=== PATIENT | female | born 1970 | race Caucasian/White ===

== ENCOUNTER 2019-06-15 06:35 | Inpatient (IN) | payer MEDICAID ==
[2019-06-15] MEDS ORDERED: Acetaminophen 500 MG Tab PO ONE (07:15)
[2019-06-15] MEDS ORDERED: Celecoxib 200 MG Cap PO ONE (07:15)
[2019-06-15] MEDS ORDERED: Scopolamine 1.5 MG Transdermal Patch TRDERM ONE (07:15)
[2019-06-15] MEDS ORDERED: Gabapentin 300 MG Cap PO ONE (07:15)
[2019-06-15] MEDS ORDERED: Rocuronium 50 MG/5 ML Vial ONE ×2 (07:20→09:12)
[2019-06-15] MEDS ORDERED: Neostigmine Methylsulfate 1 MG/ML 5 ML Syringe ONE (07:20)
[2019-06-15] MEDS ORDERED: Dexamethasone 4 MG/ML SDV ONE (07:20)
[2019-06-15] MEDS ORDERED: fentaNYL 250 MCG/5 ML SDV ONE ×2 (07:20→09:11)
[2019-06-15] MEDS ORDERED: Glycopyrrolate 0.2 MG/ML 5 ML MDV ONE (07:20)
[2019-06-15] MEDS ORDERED: Ondansetron 4 MG/2 ML SDV ONE (07:20)
[2019-06-15] MEDS ORDERED: Succinylcholine 200 MG/10 ML MDV ONE (07:20)
[2019-06-15] MEDS ORDERED: Propofol 200 MG/20 ML SDV ONE (07:20)
[2019-06-15] MEDS ORDERED: Lactated Ringers 1,000 ML ONE (07:23)
[2019-06-15] MEDS ORDERED: Dextrose 5%-Lactated Ringers 1,000 ML IV SCH (07:30)
[2019-06-15] MEDS ORDERED: cefOXitin 2 GM in Sodium Chloride 0.9% 50 ML IV ONE (08:00)
[2019-06-15] MEDS ORDERED: cefOXitin 2 GM Vial ONE (08:02)
[2019-06-15] MEDS ORDERED: Bupivacaine 0.5% 50 ML MDV ONE (08:03)
[2019-06-15] MEDS ORDERED: Lidocaine 1% with EPINEPHrine 1:100,000 50 ML MDV ONE (08:03)
[2019-06-15] MEDS ORDERED: Lidocaine 2% 100 MG/5 ML Syringe IVPUSH SCH (08:30)
[2019-06-15] MEDS ORDERED: Ketamine 500 MG/5 ML MDV IV SCH (08:30)
[2019-06-15] MEDS ORDERED: Ketamine 50 MG in Sodium Chloride 0.9% 49.5 ML IV SCH (08:30)
[2019-06-15] MEDS ORDERED: Labetalol 20 MG/4 ML Syringe ONE (09:42)
[2019-06-15] MEDS ORDERED: hydrOXYzine HCL 100 MG/2 ML SDV IM PRN (12:42)
[2019-06-15] MEDS ORDERED: Ondansetron 4 MG/2 ML SDV IVPUSH PRN (12:42)
[2019-06-15] MEDS ORDERED: diphenhydrAMINE 50 MG/ML SDV IVPUSH PRN (12:42)
[2019-06-15] MEDS ORDERED: HYDROmorphone 0.5 MG/0.5 ML Syringe IVPUSH PRN (12:42)
[2019-06-15] MEDS ORDERED: Metoclopramide 10 MG/2 ML SDV IVPUSH PRN (12:42)
[2019-06-15] MEDS ORDERED: HYDROmorphone 1 MG/ML Syringe IV PRN (12:42)
[2019-06-15] MEDS ORDERED: Labetalol 20 MG/4 ML Syringe IVPUSH PRN (12:42)
[2019-06-15] MEDS: Lidocaine 0.4%/D5W 2 GM/500 ML BAG IV SCH (12:57)
[2019-06-15] MEDS: Acetaminophen 325 MG Tab PO SCH ×2 (13:01→17:54)
[2019-06-15] MEDS ORDERED: Pantoprazole 40 MG Vial IVPUSH SCH (14:00)
[2019-06-15] MEDS: Citalopram 20 MG Tab PO SCH ×3 (14:34→21:27)
[2019-06-15] MEDS: Cetirizine 10 MG Tab PO SCH ×3 (14:37→21:30)
[2019-06-15] MEDS: cefOXitin 2 GM in Sodium Chloride 0.9% 50 ML IV SCH ×2 (14:40→19:34)
[2019-06-15] MEDS: Gabapentin 250 MG/5 ML Solution ML 470 ML Bottle PO SCH ×3 (14:50→21:26)
[2019-06-15] MEDS: Heparin Sodium 5,000 Units/ML Vial SUBCUT SCH (15:21)
[2019-06-15] MEDS ORDERED: MVI, Adult with Vitamin K 10 ML, Thiamine 200 MG, Chromium/Copper/Mang/Selen/Zn 1 ML in... IV SCH ×4 (16:00)
[2019-06-15] MEDS: ARIPiprazole 10 MG Tab PO SCH (21:26)
[2019-06-15] MEDS: Dextrose 5%-Lactated Ringers 1,000 ML IV SCH (21:31)
[2019-06-16] MEDS: Acetaminophen 325 MG Tab PO SCH ×4 (00:48→18:37)
[2019-06-16] MEDS: cefOXitin 2 GM in Sodium Chloride 0.9% 50 ML IV SCH (01:17)
[2019-06-16] MEDS: Heparin Sodium 5,000 Units/ML Vial SUBCUT SCH ×2 (03:24→15:41)
[2019-06-16] MEDS ORDERED: Iopamidol 612 MG/ML 50 ML SDV PO STA (03:28)
[2019-06-16] MEDS: Dextrose 5%-Lactated Ringers 1,000 ML IV SCH ×2 (03:29→10:07)
--- NOTE | 2019-06-16 04:46 | CRLCR ---
Indication: Status post gastric sleeve surgery. Technique: Abdomen 2 view Comparison: None Findings/Impression: Two submitted images. On the 1st submitted image contrast is present in the distal esophagus extending to the stomach and proximal duodenum. Mesh as well as a left upper quadrant drain is noted. On the 2nd image there is transit of the contrast into the duodenum without gross extravasation. Dictated by Fareed Minor MD @ Jun 16 2019 4:33AM Signed by Dr. Fareed Minor @ Jun 16 2019 4:43AM
[2019-06-16] MEDS ORDERED: Ondansetron 4 MG Tab.DIS PO PRN (07:07)
--- NOTE | 2019-06-16 08:19 | PN ---
DATE OF SERVICE: 06/16/2019 SUBJECTIVE: Migdalia is postoperative day #1. Her pain has been controlled. She has been up ambulating. Vital signs have been stable. Oral intake 780, urine output 4900. MEG drain put out 95 mL of a light pink drainage. REVIEW OF SYSTEMS: Remainder of review of systems negative for any pertinent positives and negatives. OBJECTIVE: GENERAL: Migdalia Mei is a pleasant 48-year-old female. She is alert, orientated, color pale. VITAL SIGNS: TPR 98.3, 64, 22, blood pressure is 122/66. HEENT: Negative. NECK: Supple. HEART: Regular rate and rhythm. LUNGS: Clear. ABDOMEN: Dressing dry and intact. Abdominal binder is on. EXTREMITIES: Without peripheral edema. ASSESSMENT: Laparoscopic sleeve gastrectomy, liver biopsy, repair of diaphragmatic hernia with mesh and excision of lipoma for morbid obesity, hepatomegaly, large paraesophageal diaphragmatic hernia, and mediastinal lipoma. Date of surgery: 06/15/2019. Surgeon: Low Carbajal MD. PLAN: 1. Step 2 gastric bypass diet without cereal because upper GI was normal. 2. Dressing off, may shower. 3. Decrease IV to 100 mL per hour. 4. Zofran ODT 4 mg every 4 hours p.r.n. nausea. 5. Communication order; 3 med cups per hour or 1 every 20 minutes. 6. Discontinue pulse oximetry when lidocaine has been completely infused. 7. Good pulmonary toilet. 8. We will evaluate p.r.n. or in a.m. Rosalind Malone PA-C /[id number]
[2019-06-16] MEDS: Lidocaine 0.4%/D5W 2 GM/500 ML BAG IV SCH (09:58)
[2019-06-16] MEDS: SCOPOLAMINE PATCH CHECK TOP SCH (10:04)
[2019-06-16] MEDS: Gabapentin 250 MG/5 ML Solution ML 470 ML Bottle PO SCH ×3 (10:04→21:31)
[2019-06-16] MEDS ORDERED: Benzocaine/Cetylpyridinium/Menthol Lozenge MUCMEM PRN (10:25)
[2019-06-16] MEDS ORDERED: Pantoprazole 40 MG Delayed-Release Granules 1 Packet PO SCH (16:00)
[2019-06-16] MEDS ORDERED: MVI, Adult with Vitamin K 10 ML, Thiamine 200 MG, Chromium/Copper/Mang/Selen/Zn 1 ML in... IV SCH ×4 (16:00)
[2019-06-16] MEDS: ARIPiprazole 10 MG Tab PO SCH (21:32)
[2019-06-16] MEDS: Citalopram 20 MG Tab PO SCH (21:32)
[2019-06-16] MEDS: Cetirizine 10 MG Tab PO SCH (21:32)
[2019-06-17] MEDS: Acetaminophen 325 MG Tab PO SCH ×2 (00:19→05:31)
[2019-06-17] MEDS: Dextrose 5%-Lactated Ringers 1,000 ML IV SCH (01:56)
[2019-06-17] MEDS: Heparin Sodium 5,000 Units/ML Vial SUBCUT SCH (05:31)
[2019-06-17] MEDS: SCOPOLAMINE PATCH CHECK TOP SCH (08:20)
[2019-06-17] MEDS ORDERED: Cyanocobalamin (Vitamin B12) 1,000 MCG/ML SDV IM ONE (09:00)
[2019-06-17] MEDS: Gabapentin 250 MG/5 ML Solution ML 470 ML Bottle PO SCH (10:26)
--- NOTE | 2019-06-19 09:51 | DISCH ---
FINAL DIAGNOSES: 1. Morbid obesity. 2. Marked hepatomegaly. 3. Large paraesophageal diaphragmatic hernia. 4. Mediastinal lipoma. SECONDARY DIAGNOSES: 1. Bipolar affective disorder. 2. Post-traumatic stress disorder. 3. Obstructive sleep apnea, on CPAP. OPERATIVE PROCEDURES: Diagnostic laparoscopy with: 1. Laparoscopic sleeve gastrectomy. 2. Yassine-Cut needle liver biopsy. 3. Repair of paraesophageal diaphragmatic hernia with mesh. 4. Excision of mediastinal lipoma. This was done on 06/15/2019. SUMMARY: This is a 48-year-old female presenting with longstanding morbid obesity and increasingly significant comorbidities. After preoperative evaluation and discussion, she wished to proceed with a sleeve gastrectomy. This was done on the date of the procedure. The patient had a quite large paraesophageal hernia which was repaired and reinforced with an absorbable mesh to create a denser scar and less likelihood of recurrence at the crural repair at the diaphragmatic hernia. Postoperatively, the patient has done well. She is currently on a step 2 diet, which she will stay on for 1 month postoperatively. She will continue her usual home medications, will be taking Zantac plus Tylenol 650 mg p.o. q.6 hours p.r.n. and gabapentin 300 mg t.i.d. x1 week. She will be instructed to hold her vitamins, minerals, and other supplements such as iron and ascorbic acid until after her first appointment that will be with Rosalind Malone at [facility] on 06/25/2019.
--- NOTE | 2019-06-22 13:04 | OR ---
DATE OF PROCEDURE: 06/15/2019 SURGEON: Low Carbajal MD PREOPERATIVE DIAGNOSIS: Morbid obesity. POSTOPERATIVE DIAGNOSES: 1. Morbid obesity. 2. Marked hepatomegaly. 3. Large paraesophageal diaphragmatic hernia. 4. Mediastinal lipoma. OPERATIVE PROCEDURES: Diagnostic laparoscopy with: 1. Laparoscopic sleeve gastrectomy (63216). 2. Yassine-Cut needle liver biopsy (02417). 3. Repair of paraesophageal diaphragmatic hernia with mesh (14215). 4. Excision of mediastinal lipoma (49820). ANESTHESIA: General. ELEVATOR TECHNICIAN: Rosalind Malone PA-C INDICATIONS FOR PROCEDURE: A 48-year-old presenting with longstanding morbid obesity and increasingly significant comorbidities. After preoperative evaluation and discussion, she wished to proceed with a sleeve gastrectomy. Potential risks of the procedure including bleeding, infection, injury to underlying viscera, problems with leaks from the staple line, problems with worsening reflux, and poor gastric emptying were all reviewed, along with the remote possibility of cardiopulmonary, septic, or hemorrhagic complications leading to , and the patient wishes to proceed. DETAILS OF PROCEDURE: The patient was taken to the operating room and placed in the supine position. After general endotracheal anesthesia was induced, she was converted to a lithotomy position and the abdomen was prepped and draped. At 15 cm inferior and 5 cm left of the xiphoid process, a transverse incision was made and peritoneal cavity entered under direct vision with an Optiview trocar, inflated to 15 mmHg pressure of CO2. Laparoscope was then reinserted. No underlying trocar insertion site injuries were seen. Following this, 5 additional trocars were placed across the upper and mid abdomen. General exploration was undertaken. The patient was noted to have a marked hepatomegaly with liver volume being roughly 2 to 3 times normal and the liver grossly fatty infiltrated. Yassine-Cut needle biopsy was obtained from left lobe of the liver. Following this, bilateral transversus abdominis plane blocks were then placed. The liver was then retracted anteriorly. The patient was noted to have a quite large paraesophageal diaphragmatic hernia. This was roughly the size of a chicken egg in terms of its dimension and would likely have roughly a third of stomach coming up in the chest with inspirations in the awake setting. The peritoneum over the edges of the diaphragmatic hernia were resected and the diaphragm was then incised, and the peritoneum reflected downward. During the course of this dissection, further large mediastinal lipoma was identified and removed in 2 separate parts by using the Harmonic scalpel. A circumferential dissection of the esophagus at the EG junction was then accomplished, and then the esophagus was then dissected downward such that roughly a 4-5 cm intraabdominal esophageal length was accomplished. A posterior crural repair with 0 Ethibond suture reinforced with PTFE pledgets was then placed due to the large size of the hernia. The crural repair was augmented with a Phasix ST mesh. This was cut in a horseshoe-type configuration and then placed behind the esophagus over the crural repair and left that alongside the esophagus attached to the crura on each side with titanium tacking screws. At this point, the attention was then taken to freeing up the greater curvature. The mid greater curvature was divided away from the omentum with Harmonic scalpel and this dissection then continued upward through the highest and posterior short gastric vessels. The attachments to the upper fundus of the left hollie were then divided resulting in a complete freeing up of the gastric fundus from that area. The dissection removed the omentum from the greater curvature of the stomach then continued distally to a point 2 cm proximal to the pyloric sphincter. The point of initial resection line was then mapped out with electrocautery in the anterior aspect of the stomach beginning 2 cm proximal to the pylorus. This continued below the incisura angularis with care taken to avoid overtightening of that area. Once the peralta were in place, the first 3 firings of the staple line were then reinforced with the LEANDRA black loads. Following this, a 32-Slovenian tube was then passed orally across the esophagus and along the lesser curvature of the stomach and into the antrum. This was then pulled up against the lesser curvature of the stomach and suction applied. The remainder of the sleeve gastrectomy staple line was then accomplished with reinforced black and purple loads and the specimen then delivered off to the side. The staple line was inspected and found to be intact in all areas. The area around the esophagogastric junction and just below that was then reinforced with some 0 Ethibond seromuscular stitch. That area was then reinforced with a fibrin sealant and omentum then tacked up into that area as well. The remainder of the staple line was then reinforced with some fibrin sealant and the omentum likewise pulled up and held in that area. Once this was accomplished, the suction tube was taken off suction and with the pylorus being compressed and the dissection being flooded with antibiotic-containing saline solution, air was injected in the remaining stomach under tension and no air bubbles, bleeding, or other problems were noted. The tube was then removed and at that point the gastric specimen was removed from the left lateral trocar site with no further problems noted. A single Kenan-Thomas drain was then placed through the left lateral trocar site up against the esophagogastric junction and from there up into the splenic fossa. The trocars were then sequentially removed and peritoneal cavity was deflated. Incisions were closed with 4-0 Vicryl skin stitch and the drains affixed with 4-0 Vicryl stitch as well, and the patient was taken to the recovery room in satisfactory condition. There were no immediate complications. My physician plant attendant or assistant operator, Rosalind Malone, played an essential role in assisting in this case, helping to position the patient, retract structures as needed, as well as suturing and cutting sutures when indicated. Her presence improved patient safety and decreased operative time. Low Carbajal MD /[id number]
== END 2019-06-17 11:50 | disposition home or self-care (01) | DRG 621 ==
LOC: JP.SDS 06:35 → JP.SDSSCHI 06:35 → EDSTATUS 08:30 → JP.ICU 11:55 → JP.MS 06-16 08:38
PROVIDERS: ADMIT Surgery; ATTEND Surgery
PROC: 0DB64Z3 Excision of Stomach, Percutaneous Endoscopic Approach, Vertical (ICD-10-PCS; principal; 2019-06-15)
PROC: 0FB24ZX Excision of Left Lobe Liver, Percutaneous Endoscopic Approach, Diagnostic (ICD-10-PCS; 2019-06-15)
PROC: 0BUT4JZ Supplement Diaphragm with Synthetic Substitute, Percutaneous Endoscopic Approach (ICD-10-PCS; 2019-06-15)
PROC: 0JB63ZZ Excision of Chest Subcutaneous Tissue and Fascia, Percutaneous Approach (ICD-10-PCS; 2019-06-15)
DX: E66.01 Morbid (severe) obesity due to excess calories (principal); R16.0 Hepatomegaly, not elsewhere classified; K44.9 Diaphragmatic hernia without obstruction or gangrene; D17.4 Benign lipomatous neoplasm of intrathoracic organs; F31.9 Bipolar disorder, unspecified; F43.10 Post-traumatic stress disorder, unspecified; G47.33 Obstructive sleep apnea (adult) (pediatric); E55.9 Vitamin D deficiency, unspecified; K21.9 Gastro-esophageal reflux disease without esophagitis; E78.00 Pure hypercholesterolemia, unspecified; Z88.0 Allergy status to penicillin; Z88.2 Allergy status to sulfonamides; Z79.899 Other long term (current) drug therapy; Z68.41 Body mass index [BMI] 40.0-44.9, adult
CPT/HCPCS: 36415; 74240; 81025; 82962; 86850; 86900; 86901; 88304; 88307; 88313; 94762; A9270-GY; C1713; C1781; C9113; J0171; J0330; J0694; J1100; J1644; J2001; J2405; J2704; J2710; J2795; J3010; J3411; J3420; J3490; J7050; J7120; J7121; Q9967